=== PATIENT | male | born 1990 | race Caucasian/White ===

== ENCOUNTER 2017-10-29 09:13 | Emergency (ER) | payer BC ==
[~2017-10-29] VITALS: Ht 180.3 cm; Wt 99.8 kg
[2017-10-29] MEDS ORDERED: IMURAN50 MG (09:24)
[2017-10-29] MEDS ORDERED: LIALDA1.2 GM (09:24)
== END 2017-10-29 12:57 | disposition home or self-care (01) ==
LOC: ER 09:13
DX: K52.89 Other specified noninfective gastroenteritis and colitis (principal)